=== PATIENT | male | born 1940 | race Caucasian/White ===

== ENCOUNTER 2016-10-12 12:33 | Inpatient (IN) | payer OTHER ==
[~2016-10-12] VITALS: Ht 177.8 cm; Wt 73.2 kg
[2016-10-12 13:14] LABS: BASOPHIL % 0.6 % (0-2); PLATELET COUNT 160 x10^3mcL (130-400); RED CELL DISTRIBUTION WIDTH 13.5 % (11.5-14.5)
[2016-10-12 13:20] LABS: CALCIUM 8.9 mg/dL (8.5-10.1); CARBON DIOXIDE 28.5 mmol/L (21-32); CHLORIDE SERUM 107 mmol/L (98-107); CREATININE SERUM 0.6 mg/dL (0.7-1.3); GLUCOSE SERUM 104 mg/dL (74-106); POTASSIUM SERUM 4.2 mmol/L (3.5-5.1); SODIUM SERUM 142 mmol/L (136-145)
[2016-10-12 13:32] LABS: ALBUMIN 3.6 g/dL (3.4-5.0); ALKALINE PHOSPHATASE 63 U/L (46-116); ALT/SGPT 56 U/L (16-63); AST/SGOT 30 U/L (15-37); BILIRUBIN TOTAL 0.53 mg/dL (0.20-1.00); T4(THYROXINE) 7.4 ug/dL (4.7-13.3); TOTAL PROTEIN, SERUM 6.6 g/dL (6.4-8.2)
[2016-10-12 13:48] LABS: CHOLESTEROL/HDL RATIO 2.7; PHOSPHOROUS 3.9 mg/dL (2.5-4.9)
[2016-10-12 14:35] VITALS: BP 148/57
[2016-10-12] MEDS ORDERED: FLO4 PO (15:29)
[2016-10-12] MEDS ORDERED: LEVOTHYROXIN0.025 M2 PO (15:29)
[2016-10-12] MEDS ORDERED: LIPI20 PO (15:30)
[2016-10-12] MEDS ORDERED: METOPROLOL TART25 M1 PO (15:31)
[2016-10-12 16:00] VITALS: BP 148/57
[2016-10-12 17:11] VITALS: BP 122/53
[2016-10-12 20:55] VITALS: BP 127/56
[2016-10-13 05:21] LABS: CALCIUM 8.6 mg/dL (8.5-10.1); CARBON DIOXIDE 25.4 mmol/L (21-32); CHLORIDE SERUM 110 mmol/L (98-107); CREATININE SERUM 0.6 mg/dL (0.7-1.3); GLUCOSE SERUM 109 mg/dL (74-106); MAGNESIUM 2.1 mg/dL (1.8-2.4); PHOSPHOROUS 4.2 mg/dL (2.5-4.9); POTASSIUM SERUM 3.9 mmol/L (3.5-5.1); SODIUM SERUM 143 mmol/L (136-145)
[2016-10-13 06:50] VITALS: BP 119/52
[2016-10-13 09:15] LABS: microscopic required? NO
[2016-10-13 10:20] VITALS: BP 108/68
[2016-10-13 10:38] LABS: AMPHETAMINE QUAL UR NONE DETECTED (NEG <=1000); urine erythrocyte NEGATIVE (NEGATIVE)
[2016-10-13 12:50] VITALS: BP 118/62
[2016-10-13 15:29] VITALS: BP 118/62
[2016-10-13 17:25] VITALS: BP 101/36
== END 2016-10-13 20:35 | disposition short-term general hospital (02) | DRG 291 ==
LOC: ED 12:33 → DU 13:16
PROVIDERS: Emergency Medicine; ADMIT Family Medicine
DX: I50.43 Acute on chronic combined systolic (congestive) and diastolic (congestive) heart failure (principal); N17.0 Acute kidney failure with tubular necrosis; I44.1 Atrioventricular block, second degree; N40.0 Benign prostatic hyperplasia without lower urinary tract symptoms; E03.9 Hypothyroidism, unspecified; E78.5 Hyperlipidemia, unspecified; Z68.22 Body mass index [BMI] 22.0-22.9, adult; Z95.1 Presence of aortocoronary bypass graft; Z95.5 Presence of coronary angioplasty implant and graft
CPT/HCPCS: 83880; J0610; J1610; J3490; Q0092